=== PATIENT | female | born 1960 | race Caucasian/White ===

== ENCOUNTER → 2016-10-23 | Outpatient (CLI) | payer OTHER ==
[~2016-10-23] MED LIST: ALLERGY SHOT IM; BIOCLEANSE PO; CITRUCEL500 MG PO; FLONASE 50 MCG/16 GM NOSE; FORMULA 303 PO; KLOR-CON SPRIN10 MEQ PO; LEVOCETIRIZINE D5 MG PO; MAXZIDE-751 TAB PO; NORCO 5-325 MG1 TAB PO; OMEPRAZOLE40 MG PO; PREMPRO 0.625-1 EACH PO; PROBIOTIC1 EAC1 PO; VITAMIN D34000 UNIT PO; ZOCOR40 MG PO; [UNRECOGNIZED DRUG - OTHER] PO; [UNRECOGNIZED DRUG - OTHER] PO
== END | disposition disaster alternative care site (69) ==
LOC: GBCOE 13:00
DX: Z12.31 Encounter for screening mammogram for malignant neoplasm of breast (principal)
CPT/HCPCS: G0202